=== PATIENT | male | born 1990 | race Caucasian/White ===

== ENCOUNTER 2018-08-04 18:16 | Emergency (ER) | payer BC, MEDICAID, OTHER ==
[~2018-08-04] VITALS: Wt 66.0 kg
--- NOTE | 2018-08-04 22:28 | ERD ---
ER Documentation Chief Complaint Chief Complaint COUGH, SINUS CONGESTION X'S 2 WEEKS HPI 27-year-old male, presents to the emergency department complaining of 2 weeks with intermittent episodes of high fever, runny nose, chest congestion, dry cough and general malaise reports a history. The patient of allergic rhinitis with previous episodes of infectious sinusitis. Has been taking [id number] medications without improvement of the symptoms. Otherwise, no shortness of breath, no headache, no blurred vision. ROS All systems reviewed and are negative except as per history of present illness. Medications Home Meds Active Scripts Inhaler, Assist Devices (Compact Space Chamber) 1 Each Spacer, EACH MC, #1 Prov:SOTERO BOWIE MD 08/04/18 Albuterol Sulfate* (Proair HFA*) 8.5 Gm Hfa.aer.ad, 2 PUFF INH Q4, #1 INHALER Prov:SOTERO BOWIE MD 08/04/18 Prednisone* (Prednisone*) 20 Mg Tab, 40 MG PO DAILY for 5 Days, TAB Prov:SOTERO BOWIE MD 08/04/18 Azithromycin* (Zithromax*) 250 Mg Tablet, 250 MG PO .ZPACK DIRECTED, #6 TAB TAKE 500 MG (2 TABS) THE FIRST DAY THEN 250 MG (1 TAB) DAYS 2-5 Prov:SOTERO BOWIE MD 08/04/18 Allergies Allergies: Coded Allergies: No Known Allergy (Unverified , 08/04/18) FmHx Family History: No diabetes, No coronary disease Physical Exam Vitals Vital Signs Date Temp Pulse Resp B/P (MAP) Pulse Ox O2 O2 Flow FiO2 Time Delivery Rate 08/04/18 100.7 90 18 124/61 99 18:32 (82) Physical Exam Const: No acute distress Head: Atraumatic, tenderness to palpation of the sinuses. Eyes: Normal Conjunctiva ENT: Normal External Ears, Nose and Mouth. Neck: Full range of motion. No meningismus. Resp: Rhonchi to auscultation bilaterally Cardio: Regular rate and rhythm, no murmurs Abd: Soft, non tender, non distended. Normal bowel sounds Skin: No petechiae or rashes Back: No midline or flank tenderness Ext: No cyanosis, or edema Neur: Awake and alert Psych: Normal Mood and Affect Procedures/MDM At the time of discharge, patient with nontoxic appearance, vital signs stable, no respiratory distress. Differential diagnosis include but not limited to: upper vs lower respiratory infection bacterial/viral/fungal. Asthma, COPD, pneumonitis, allergies, GERD. Less likely pulmonary embolism, cardiac related or malignancy, but still is a possibility. Physical examination and clinical presentation consistent most likely with sinusitis 2/2 viral infection with early superimposed bacterial infection. During the ED course the patient remained stable, no new complaints. Treatment options and clinical impression discussed with the patient who agrees with management. The patient is stable to be treated outpatient and will be dis charged home. Some side effects of prescribed medications (headache, rash, nausea, vomiting, diarrhea, interactions with other medications) were reviewed. The patient needs to follow up with the primary care provider in the next 48h. If symptoms persist, worsen or new symptoms develop, then patient should return to the ED immediately. Disclaimer: Inadvertent spelling and grammatical errors are likely due to EHR/dictation software use and do not reflect on the overall quality of patient care. Also, please note that the electronic time recorded on this note does not necessarily reflect the actual time of the patient encounter. Departure Diagnosis: Primary Impression: Sinusitis Additional Impression: Acute bronchitis due to infection Condition: Stable Additional Instructions: Thank you very much for allowing us to participate in your care. Your health and safety is our top priority at [facility]. Call your primary care doctor TOMORROW for an appointment during the next 2-4 days and bring all the information and medications prescribed. Have prescriptions filled and follow precisely the directions on the label. If the symptoms get worse and your provider is unavailable, return to the Emergency Department immediately. SOTERO BOWIE MD Aug 04, 2018 22:28
[2018-08-04] MEDS ORDERED: INHA-3 MC (22:45)
[2018-08-04] MEDS ORDERED: PRED20TA PO (22:45)
[2018-08-04] MEDS ORDERED: AZIT250T PO (22:45)
[2018-08-04] MEDS ORDERED: ALBU8.5H8 INH (22:45)
[2018-08-04 23:00] VITALS: BP 121/67; PULSE 73; RESP 18
== END 2018-08-04 23:10 | disposition home or self-care (01) ==
LOC: FTE 18:16
DX: J20.9 Acute bronchitis, unspecified (principal); J32.9 Chronic sinusitis, unspecified
CPT/HCPCS: 99283